=== PATIENT | male | born 1965 | race Caucasian/White ===

== ENCOUNTER 2023-11-19 19:21 | Day surgery (SDC) | payer OTHER, SELFPAY ==
[2023-11-19] VITALS (17 sets, daily range): BP systolic 107–125; BP diastolic 66–84; BMI 24.5
[2023-11-19 11:18] LABS: % Basophils 0.2 % (0-2); % Eosinophils 0.1 % (0-6); % Immature Granulocytes 0.4 % (0-0.5); % Monocytes 9.4 % (1.7-9.3); % Neutrophils 84.9 % (42.2-75.2); Absolute Immature Granulocytes 0.1 10^3/uL (0-0.05); Absolute Lymphocytes 0.7 10^3/uL (1.2-3.4); Absolute Monocytes 1.4 10^3/uL (0.1-0.6); Absolute Neutrophils 12.2 10^3/uL (1.4-6.5); Hematocrit 47.8 % (39.0-52.0); Mean Corp Hgb Conc. 35.6 g/dL (33.0-37.0); Mean Corpuscular Hgb 29.3 pg (27.0-31.0); Mean Corpuscular Volume 82.3 fL (80.0-94.0); Mean Platelet Volume 9.3 fL (7.4-10.4); Nucleated Red Blood Cells % 0 % (-); Platelet Count 226 10^3/uL (130-400); Red Blood Cell Count 5.81 10^6/uL (4.70-6.10); White Blood Cell Count 14.4 10^3/uL (4.8-10.8)
[2023-11-19 11:31] LABS: ALT (SGPT) 17 U/L (0-50); AST (SGOT) 21 U/L (17-59); Albumin 4.4 g/dl (3.5-5.0); Alkaline Phosphatase 64 U/L (38-126); Blood Urea Nitrogen 18 mg/dl (9-20); Calcium 9.5 mg/dl (8.4-10.2); Carbon Dioxide 24 mmol/L (22-30); Chloride 102 mmol/L (98-107); Glucose 139 mg/dl (70-99); Lipase 72 U/L (23-300); Potassium 4.7 mmol/L (3.5-5.1); Sodium 134 mmol/L (135-145); Total Bilirubin 2.3 mg/dl (0.2-1.3); Total Protein 7.2 g/dl (6.3-8.2); eGFR > 60.00
[2023-11-19] MEDS: OMNIPAQUE 50 ML PO (12:26)
--- NOTE | 2023-11-19 14:01 | ED.GENMED ---
History of Present Illness
General
Chief Complaint: Abdominal Pain
Source: patient
Time Seen by Provider: 11/19/23 12:09
Travel History
Have you had any contact with someone who has COVID-19?: No
Do you have any symptoms of coronavirus? Fever > 100 degrees, chills, cough, shortness of breath, sore throat, loss of taste or smell, muscle aches, or headache?: No
History of Present Illness
History of Present Illness:
58-year-old male with past medical history of hypothyroidism presenting emergency department for evaluation of 2 to 3 days of abdominal pain, decreased p.o. intake to both solids and liquids during this time but no other symptoms including nausea,
vomiting, diarrhea, constipation, urinary symptoms or any other concerns. Has not attempted any medications for relief. Patient states that initially the pain was diffuse and generalized but on Saturday evening into Saturday morning pain seem to be
localized to the right lower quadrant. He describes the pain as a constant aching sensation, 7 out of 10, nonradiating.
Past History
Past History
ED Past Medical History: Hyperthyroidism
ED Past Surgical History: None
Social History
Tobacco: Non-smoker
Alcohol: Occasional
Drug: None
Personal:
Living: with family
Employment: Employed
Review of Systems
Review of Systems
All Other Systems: ROS reviewed and negative except as documented in HPI and ROS
Phy Exam
Physical Exam
Physical Exam:
GENERAL: Alert , in no apparent distress but does appear uncomfortable
EYE: clear conjunctiva b/l
HEAD: NCAT
ENT: o/p clr, mmm.
CARDIAC: Regular rate and rhythm .
LUNGS: Clear breath sounds bilaterally, no acute respiratory distress, no wheezes/rales/rhonchi
ABDOMEN: Soft, right lower quadrant pain with palpation with grimacing, no r/g, no cvat, negative Schmitz sign, tenderness at McBurney's point
NEUROLOGICAL: Alert and oriented
SKIN: Warm and dry, skin intact.
MUSCULOSKELETAL: well perfused.
PSYCH: Normal and appropriate interaction.
Scores
Heart Failure Risk
Heart Failure Risk Score: Not Applicable
Heart Score for Chest Pain Patients
STEMI patient?: Not applicable
Withdrawal Assessment of Alcohol
Withdrawal Assessment Completed?: Not applicable
Course
Orders/Labs/Results
Orders:
Orders
11/19/23 11:11
Complete Blood Count/With Diff Urgent
Comprehensive Metabolic Panel Urgent
Lipase Urgent
11/19/23 12:10
Iohexol [Omnipaque] See Protocol PO NOW STA
11/19/23 12:14
CT Abd/pel W Iv And Oral Contr Urgent
Comment:
Reason For Exam: RLQ pain, leukocytosis
11/19/23 16:08
Piperacillin/Tazo 3.375 Gram [Zosyn] 3.375 gram in 50 ml IV NOW
11/19/23 16:36
Dexamethasone Sod Phosphate [Decadron] 20 mg .ROUTE .STK-MED ONE
Fentanyl Citrate/Pf [Sublimaze] 100 mcg .ROUTE .STK-MED ONE
Lidocaine HCl/Pf [Xylocaine-Mpf 1% Vial] 50 mg .ROUTE .STK-MED ONE
Midazolam HCl [Versed] 2 mg .ROUTE .STK-MED ONE
Ondansetron Injectable [Zofran] 4 mg .ROUTE .STK-MED ONE
Propofol [Diprivan] 20 ml .ROUTE .STK-MED
Rocuronium [place] [Rocuronium] 50 mg .ROUTE .STK-MED ONE
11/19/23 17:54
Bupivacaine Pf 0.5% [Sensorcaine 0.5% Single Dose] 30 ml .ROUTE .STK-MED ONE
11/19/23 18:03
HYDROmorphone [Dilaudid] 0.25 mg IV PACU-Q5MPRN PRN
HYDROmorphone [Dilaudid] 0.5 mg IV PACU-Q5MPRN PRN
Meperidine [Demerol] 12.5 mg IV PACU-Q5MPRN PRN
Ondansetron Injectable [Zofran] 4 mg IV PACU-ONCEPRN PRN
Prochlorperazine [Compazine] 5 mg IV PACU-ONCEPRN PRN
Notify MD As Directed
Notify physician if: for SDS patients with known or suspected sleep obstructive sleep apnea, monitor in the
PACU.
Notify MD for any apneic/desaturation episodes
O2 Therapy [RESP] Urgent
Titrate/Wean O2 to maintain O2 sat greater than (%): 92
Special Instructions: -Provide supplemental oxygen to achieve O2 sat of 92% or greater.
-After 15 min, may wean O2 and discontinue if patient is able to maintain O2 sat of 92%
or greater during recovery period.
If patient is a discharge home, without oxygen therapy, notify anestheiologist if
unable to maintain O2 SAT of 92% or greater on room air for MD clearance.
11/19/23 18:15
Normosol (Mult Electrolytes) [Normosol-R] 1,000 ml IV PER PROTOCOL
11/19/23 18:19
Diphenhydramine [Benadryl] 50 mg .ROUTE .STK-MED ONE
11/19/23 18:37
HYDROmorphone [Dilaudid] 1 mg .ROUTE .STK-MED ONE
11/19/23 18:39
Dexmedetomidine HCl [Precedex] 400 mcg .ROUTE .STK-MED ONE
11/19/23 19:00
OR Pathology Routine
Pre-Operative Diagnosis: appendicitis
Operative Procedure: lap appy
Surgeon: Mary
Specimen Type: appendix
11/19/23 19:03
Admit Patient As Directed
Co-Sign Provider:
Level of Care: Post Proc/Surg Recovery
Assign to:: Medical/Surgical
Physician / Group: Mary
Diagnosis: Acute appendicitis
Reason for Overnight Stay: Other
Other Reason for Overnight Stay: abx
Code Status As Directed
Resuscitation Status: Full Code
Ibuprofen [Motrin] 600 mg PO Q6HPRN PRN
Ondansetron Injectable [Zofran] 4 mg IV Q6HPRN PRN
Oxycodone [Roxicodone] 10 mg PO Q4HPRN PRN
Oxycodone [Roxicodone] 5 mg PO Q4HPRN PRN
Activity As Directed
Activity Level: Out of Bed-Early Mobility
Anti-embolism (JOYA) Hose As Directed
Type: Thigh high
Intake/ Output As Directed
Frequency: Per unit guidelines
Vital Signs As Directed
Frequency: Per unit guidelines
11/19/23 19:04
Pneumatic Compression Sleeves As Directed
Type: Knee high
Rx Incentive Spirometry [RESP] Routine
Frequency: q1h while awake
# of times per hour: 10
DX Deep Vein Thrombosis Video Routine
11/19/23 19:17
Sugammadex Sodium [Bridion] 200 mg .ROUTE .STK-MED ONE
11/19/23 19:30
Acetaminophen [Tylenol] 1,000 mg PO Q6HPRN PRN
11/19/23 22:00
Piperacillin/Tazo 3.375 Gram [Zosyn] 3.375 gram in 50 ml IV Q6H
11/20/23 Breakfast
Regular
At Your Request: Full Participation
11/20/23 08:00
Methimazole [Tapazole] 2.5 mg PO DAILY
11/20/23 18:00
Enoxaparin Sodium [Lovenox] 40 mg SC QPM
Abnormal Lab Results
11/19/23
11:11
WBC 14.4 H 10^3/uL
(4.8-10.8)
Abs Immat Gran (auto) 0.1 H 10^3/uL
(0-0.05)
Absolute Neuts (auto) 12.2 H 10^3/uL
(1.4-6.5)
Absolute Lymphs (auto) 0.7 L 10^3/uL
(1.2-3.4)
Absolute Monos (auto) 1.4 H 10^3/uL
(0.1-0.6)
Neutrophils % 84.9 H %
(42.2-75.2)
Lymphocytes % 5.0 L %
(20.5-51.1)
Monocytes % 9.4 H %
(1.7-9.3)
Sodium 134 L mmol/L
(135-145)
Glucose 139 H mg/dl
(70-99)
Total Bilirubin 2.3 H mg/dl
(0.2-1.3)
11/19/23 11:11
11/19/23 11:11
Vital Signs
Initial and Last Documented VS:
Initial Vital Signs
Temp Pulse Resp BP Pulse Ox
98 F 104 18 111/76 99
11/19/23 11:02 11/19/23 11:02 11/19/23 11:02 11/19/23 11:02 11/19/23 11:02
Last Documented Vital Signs
Temp Pulse Resp BP Pulse Ox
97.9 F 67 17 111/68 94
11/20/23 03:00 11/20/23 03:00 11/20/23 03:00 11/20/23 03:00 11/20/23 03:00
MDM/Problems Addressed
Differential Diagnosis Includes:
Appendicitis, renal/ureteral colic, colitis, diverticulitis, pancreatitis
MDM/Problems Addressed:
58-year-old male present emergency department for evaluation of abdominal pain x 3 days, during this time pain is graduated into the right lower quadrant and has been constant. Exam did reveal significant tenderness within the right lower quadrant.
Lab work had already been initiated from triage. Will add CT scan on for further evaluation. Patient declining anything for pain. Advised to remain NPO.
*Radiology
Radiology exam reviewed: radiology read reviewed
*Pulse Oximetry
Patient hypoxic: no
*Critical Care Note
Total Time (30-74mins, 75-104mins- exclusive of procedures): Not Applicable
Comment
Comment:
2:10 PM Patient resting comfortably. Awaiting CT scan. Continues to decline anything for pain.
Patient Management
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
Escalation/DeEscalation of care consider admission/obs:
Patient CT scan consistent with acute appendicitis. Patient was updated on these findings. I notified the general surgery team and they will plan to take patient to the operating room this evening. They are requesting a dose of Zosyn to be given
in the emergency and patient to remain NPO. Patient continues to decline any pain medication.
ED Attending Note
-
Portions of this chart may have been created with voice recognition software.� Occasional wrong word or��sound alike� substitutions may have occurred due to the inherent limitations of voice recognition software.
Discharge Plan
Departure
Patient Disposition: Admit
Date of Disposition: 11/19/23
Time of Disposition: 16:05
Presentation/result/management discussed w/ accepting MD/DO: Mary
Discharge Problem:
Acute appendicitis
Interventions
Interventions:
*General Assessment Last Done: 11/19/23 11:02
*Neglect/Abuse Screening Last Done: 11/19/23 11:02
ED- Fall Risk Assessment Last Done: 11/19/23 17:32
*Nursing Disposition Last Done: 11/19/23 17:32
SY-Iwwkbq-Qucjphnkvr Assessment Last Done: 11/19/23 12:31
Discharge Date and Time
Discharge Date/Time: 11/19/23 17:33
[2023-11-19] MEDS: ZOSYN 50 IV ×2 (16:14→22:33)
--- NOTE | 2023-11-19 19:06 | CON.GS ---
Consultation
-
Requesting Provider: Mckay
Performing Provider: Mary
Reason for Consultation: Acute appendicitis
Medical History
-
Chief Complaint: Abd pain
History of Present Illness:
58M with 3 days of acute onset abd pain a/w anorexia. Denies f/c/n/v. Pain initially diffuse abd pain that migrated to RLQ, 04/01 severity, progressive. No exacerbating/relieving factors.
Past Medical History
Past Medical History: Reviewed & Noncontributory
Past Surgical History: Reviewed & Noncontributory
Social History
Tobacco: Non-Smoker
Personal:
Living: With Family
Family History
Family History: Reviewed & Noncontributory
Allergies / Home Medications
Allergy/AdvReac Type Severity Reaction Status Date / Time
No Known Allergies Allergy Verified 11/13/19 22:36
Medication Instructions Recorded Confirmed Type
methimazole 5 mg tablet 2.5 mg PO DAILY 11/19/23 11/19/23 History
Review of Systems
-
A 10 point review of systems was completed, and was negative except as per HPI.
Physical Exam
Vital Signs
Temp Pulse Resp BP Pulse Ox
98 F 88 26 121/72 94
11/19/23 11:02 11/19/23 17:15 11/19/23 17:15 11/19/23 17:00 11/19/23 17:15
11/18/23 11/19/23 11/20/23
06:59 06:59 06:59
Actual Weight 83 kg
Lab Results
11/19/23 11:11
11/19/23 11:11
WBC 14.4 10^3/uL (4.8-10.8) H 11/19/23 11:11
Hgb 17.0 g/dL (13.0-18.0) 11/19/23 11:11
Hct 47.8 % (39.0-52.0) 11/19/23 11:11
Plt Count 226 10^3/uL (130-400) 11/19/23 11:11
Abs Immat Gran (auto) 0.1 10^3/uL (0-0.05) H 11/19/23 11:11
Neutrophils % 84.9 % (42.2-75.2) H 11/19/23 11:11
Physical Exam
General: Well Developed, Well Nourished and No Apparent Distress
GI: Soft and Tender (RLQ ttp)
Skin: Warm and Dry
Neuro: AO x 3
Psych: Calm
Data Reviewed
-
CT Scan: Image Personally Visualized and interpreted, Report Reviewed by me, Discussed with Physician and Discussed with Patient
Labs: Labs Reviewed by me
Assessment / Plan
-
58M with acute appendicitis
OCTOR for lap appy
--- NOTE | 2023-11-19 19:10 | OR.RPT ---
Operative Report
Operative Report
Primary Surgeon: Mary
Pre-op Diagnosis: Acute appendicitis
Post-op Diagnosis: Acute gangrenous appendicitis
Procedure Performed: Laparoscopic appendectomy
Anesthesia Type: GETA
Specimen / Cultures: Appendix
Estimated Blood Loss: 10cc
Complications: None immediate
Operative Findings: Inflamed aoppendix with patchy wall necrosis densely adherent to pelvic sidewall, scant purulent fluid localized to RLQ/pelvis, no free perforation or stool contamination
Date of Surgery: 11/19/23
Indications: This 58M developed right lower quadrant abdominal pain and on workup was found to have acute appendicitis. Laparoscopic appendectomy was elected.
Description of procedure: The patient was placed on the operating table in the supine position. General anesthesia was induced. A time-out was completed verifying correct patient, procedure, site, positioning, and special equipment prior to
beginning this procedure. An orogastric tube was placed. The abdomen was prepped and draped in the usual sterile fashion. A stab incision was made in left upper quadrant and the Veress needle was inserted. Proper position was confirmed by aspiration
and saline meniscus test. The abdomen was insufflated with carbon dioxide to a pressure of 12 mmHg. The patient tolerated insufflation well.
A 5mm optical trocar was then inserted at the left lower quadrant. The laparoscope was inserted and the abdomen inspected. No injuries from initial trocar placement or Veress needle insertion were noted. Additional trocars were then inserted in the
following locations: a 12-mm trocar at the umbilicus and a 5-mm trocar midline in the suprapubic space. The abdomen was inspected and no abnormalities were found. The table was placed in the Trendelenburg position with the right side up. TThe
appendix was densely adgherent to the pelvic sidewall. It was gently bluntly swept away and lateral attachments were controlled with the ligasure. The tip of the appendix was gently grasped with an atraumatic grasper and retracted toward the
patient�s feet and abdominal wall. This maneuver exposed the appendiceal blood supply which was controlled with the Ligasure device. Following this, a laparoscopic linear cutting stapler with a 45mm chavez load was deployed and used to transect the
appendix at its base. The appendix was placed in an endoscopic retrieval bag, removed through the umbilical port, and passed off the table as a specimen.
We then turned our attention to the staple line, which was noted to be hemostatic. A small amount of purulent fluid was noted in the right lower quadrant, this was suctioned and the area was thoroughly irriigated with sterile saline. The umbilical
trocar site was closed at the fascial level laparoscopically with 2-0 PDS under direct vision. Secondary trocars were removed under direct vision and noted to be hemostatic. The laparoscope was withdrawn and the abdomen was allowed to collapse. The
skin was closed with subcuticular sutures of 4-0 monocryl and topical skin adhesive. The orogastric tube was removed.
The patient tolerated the procedure well and was taken to the postanesthesia care unit in stable condition.
[2023-11-20 03:00] VITALS: BP 111/68
[2023-11-20] MEDS: ZOSYN 50 IV ×2 (04:19→09:42)
[2023-11-20 08:16] VITALS: BP 101/69
[2023-11-20] MEDS: TAPAZOLE 2.5 MG PO (08:16)
--- NOTE | 2023-11-20 08:38 | W.PN.GS2 ---
Today's Communication / Plan
-
DC with PO abx
Assessment / Plan
-
58M POD1 s/p lap appy for acute appendicitis
AFVSS, doing wlel post-op, meets criteria for DC
Will send with 5 additional days of PO abx to reduce risk of post-op infection in light of gangrenous changes and slight purulence
Subjective Data
-
Date of Service: November 20, 2023
AFVSS, ambulating, voiding, amanda PO, pain controlled
Objective Data
-
Intake and Output
11/19/23 11/20/23 11/21/23
06:59 06:59 06:59
Intake Total 665 / 665
Balance 665 / 665
Intake:
Oral fluids 265 / 265
IV fluids (Total) 300 / 300
normo 300 / 300
IV piggybacks 100 / 100
Other:
Number of approximated SMALL 1
amounts of urine
Number of approximated MODERATE 1
amounts of urine
Vital Signs
Temp Pulse Resp BP Pulse Ox
98.6 F 93 18 101/69 96
11/20/23 08:16 11/20/23 08:16 11/20/23 08:16 11/20/23 08:16 11/20/23 08:16
Lab Results
11/19/23 11:11
11/19/23 11:11
Calcium 9.5 mg/dl (8.4-10.2) 11/19/23 11:11
Total Bilirubin 2.3 mg/dl (0.2-1.3) H 11/19/23 11:11
AST 21 U/L (17-59) 11/19/23 11:11
ALT 17 U/L (0-50) 11/19/23 11:11
Alkaline Phosphatase 64 U/L (38-126) 11/19/23 11:11
Total Protein 7.2 g/dl (6.3-8.2) 11/19/23 11:11
Albumin 4.4 g/dl (3.5-5.0) 11/19/23 11:11
Physical Exam
-
Gen: NAD
bd: soft, approp ttp, incisions cdi
--- NOTE | 2023-11-20 08:40 | W.DS.TRANS ---
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
-
Discharge Instructions:
Instructions:
Stand-Alone Forms:
Changes to Home Medications: No
Discharge Medications:
DC Medications w/original date entered in [email or web address]
methimazole 5 mg tablet 2.5 mg PO DAILY 11/19/23
Home Medication Changes
Pending Results: No
--- NOTE | 2023-11-20 10:38 | CM ---
Reviewed the chart notes. Patient for discharge to home today. Spouse will provide transportation. Resides with spouse in a two story home. No DME/VN/SNF in the past. CM continues to be available to patient/family and is monitoring medical plan
for needs at discharge.
Plan: Discharge to home today.
== END 2023-11-20 10:46 | disposition home or self-care (01) ==
LOC: PACU 19:21
PROVIDERS: ATTENDING PHYSICIAN Surgery; EMERGENCY PHYSICIAN Student in an Organized Health Care Education/Training Program; FAMILY PHYSICIAN Family Medicine
DX: K35.891 Other acute appendicitis without perforation, with gangrene (principal)
CPT/HCPCS: 44970; 88304; 74177; 80053; 83690; 85025; 96374; 99285; Q9967